=== PATIENT | male | born 1940 | race Caucasian/White ===

== ENCOUNTER → 2017-06-27 08:05 | Outpatient (CLI) | payer MEDICARE, OTHER, SELFPAY ==
[2017-06-27 10:12] LABS: Absolute Lymphocyte Count 1.41 X10^3/ul (0.83-4.51); Absolute Neutrophil Count 2.2 X10^3/uL (2.0-7.7); Basophil# 0.03 X10^3/uL; Basophil% 0.6 % (0-1); Eosinophil# 0.34 X10^3/uL; Eosinophils% 7.2 % (0-5); Hematocrit 43.1 % (40-54); Hemoglobin 13.7 g/dl (13.0-16.5); Lymphocyte # 1.41 X10^3/ul (4.0); Lymphocyte % 29.9 % (19-41); Mean Corp Hgb Conc 31.8 g/gl (32-36); Mean Corpuscular Hgb 30.4 pg (27.0-32.0); Mean Corpuscular Volume 95.6 fL (80-94); Mean Platelet Vol. 11.2 fl (6.2-12.0); Monocyte# 0.74 X10^3/uL; Monocyte% 15.7 % (0-10); Neutrophil # 2.19 X10^3/uL (2.7-7.7); Neutrophil % 46.4 % (47-70); Platelet Count 194 K/mm3 (150-450); RBC Distribution Width CV 14.2 % (11.6-14.6); RBC Distribution Width SD 49.2 fl (35.1-43.9); Red Blood Count 4.51 M/mm3 (4.6-6.2); White Blood Count 4.7 K/mm3 (4.4-11.0)
[2017-06-27 10:15] LABS: POSITIVE COUNT NO; POSITIVE DIFFERENTIAL NO; POSITIVE MORPHOLOGY NO
[2017-06-27 10:26] LABS: AST(SGOT) 30 U/L (15-37); Alanine Aminotransfer ALT/SGPT 31 U/L (16-61); Albumin, Serum 3.8 g/dL (3.2-5.0); Alkaline Phosphatase 87 U/L (45-117); Bilirubin, Direct 0.16 mg/dL (0.00-0.30); Cholesterol 148 mg/dL (200); Globulin 3.3 g/dL (2.2-4.2); High Density Lipoprotein 44 mg/dL; Protein, Total 7.1 g/dL (6.4-8.2); Triglycerides 92 mg/dL; Very Low Density Lipoprotein 18 mg/dL (5-40)
== END ==
PROVIDERS: Internal Medicine Cardiovascular Disease; Family Provider Nurse Practitioner Family; PCP Nurse Practitioner Family; Visit Provider Nurse Practitioner Family
DX: E78.5 Hyperlipidemia, unspecified (principal); I10 Essential (primary) hypertension; Z79.899 Other long term (current) drug therapy
CPT/HCPCS: 36415; 80061; 80076; 85025

== ENCOUNTER → 2017-07-24 05:51 | Outpatient (CLI) | payer MEDICARE, OTHER, SELFPAY ==
--- NOTE | 2017-07-24 05:51 | DT_ITS ---
This patient was seen during an EMR downtime July 17, 2017 - July 24, 2017. This patient may have a combination of paper and electronic documentation or all paper documentation. All documentation is viewable within the e-chart portion of [email or web address] for each patient visit.
--- NOTE | 2017-07-24 17:56 | STRESSREP ---
Stress Test Report Pharmacologic myocardial perfusion stress test. 77-year-old man with a history of coronary artery disease status post carotid bypass surgery. Resting EKG demonstrates normal sinus rhythm with a rate of 57 bpm resting blood pressure is 150/102 mmHg. 0.4 mg regadenoson was infused per usual protocol followed by rapid intravenous saline flush injection continuous EKG monitoring was performed. Patient maintained sinus rhythm throughout the recording. At rest there were no ST or T-wave changes noted suggest ischemia occasional premature ventricular complexes were noted. At peak infusion no ST or T-wave changes were noted suggest abnormal flow reserve. No clinical angina was noted. The resting blood pressure was 150/102 mmHg with a final blood pressure 158/92 mmHg. Myocardial perfusion protocol. 14.7 mCi of technetium 99m sestamibi was injected at rest. 0.4 mg of regadenoson was infused per usual protocol. Peak infusion 45.0 mCi of technetium 99m sestamibi was injected stress images were obtained stress and rest images were reconstructed and compared in the short axis vertical long and horizontal long axis. Gated images were also obtained pre- Perfusion SPECT analysis: Review of the stress images demonstrate normal uptake of tracer noted in the septum anterior wall and lateral wall. The inferior wall demonstrates mildly reduced perfusion. The resting images demonstrate mild improvement suggesting a mild amount of inferior ischemia present. Gated SPECT analysis: The gated ejection fraction is 60%. Conclusion: Pharmacologic myocardial perfusion stress test with probable mild inferior perfusion defect noted. Preserved ejection fraction.
== END ==
PROVIDERS: Family Provider Nurse Practitioner Family; PCP Nurse Practitioner Family; Visit Provider Physician Assistant Medical
DX: I25.10 Atherosclerotic heart disease of native coronary artery without angina pectoris (principal); I10 Essential (primary) hypertension; E78.5 Hyperlipidemia, unspecified
CPT/HCPCS: 78452; 93017; A9500; A4216; J2785

== ENCOUNTER → 2017-11-14 08:37 | Outpatient (CLI) | payer MEDICARE, OTHER, SELFPAY ==
--- NOTE | 2017-11-14 08:38 | RAD_ITS ---
STUDY: X-RAY - LEFT SHOULDER REASON FOR EXAM: Shoulder pain. TECHNIQUE: 3 view(s) of the shoulder. COMPARISON: None. FINDINGS: Normal glenohumeral articulation. Normal acromioclavicular joint. Normal acromion. Normal humeral head and visualized proximal humerus. The soft tissue structures are unremarkable. Normal visualized pulmonary apex. RAD/Shoulder min 2 Views IMPRESSION: Unremarkable x-ray examination of the left shoulder. Electronically Signed: Marin Forman MD at 12:49 EDT Tel , Service support ,
== END ==
PROVIDERS: Family Provider Nurse Practitioner Family; PCP Nurse Practitioner Family; Referring Provider Orthopaedic Surgery; Visit Provider Orthopaedic Surgery
DX: M25.512 Pain in left shoulder (principal)
CPT/HCPCS: 73030

== ENCOUNTER → 2017-12-27 16:13 | Outpatient (CLI) | payer MEDICARE, OTHER, SELFPAY ==
[2017-07-05 13:10] VITALS: BMI 34.5
--- NOTE | 2017-12-27 16:20 | RAD_ITS ---
STUDY: X-RAY - ABDOMEN/PELVIS REASON FOR EXAM: Male, 77 years old. Abdominal pain. TECHNIQUE: AP supine and upright views of the abdomen and pelvis. COMPARISON: 12/03/2014. FINDINGS: Normal visualized lung bases. There is an unremarkable bowel gas pattern. There is no demonstrated free abdominal air. No definite renal or ureteral stones. The visualized liver, spleen and kidneys are grossly normal in size and morphology. Normal soft tissue structures. There are diffuse degenerative changes of the visualized lumbar spine. RAD/Abd Inc Decub and/or Erect IMPRESSION: No definite acute abnormality. Electronically Signed: Sigifredo Mei MD at 12:04 EST , Service support ,
== END ==
PROVIDERS: Family Provider Nurse Practitioner Family; PCP Nurse Practitioner Family; Referring Provider Internal Medicine Gastroenterology; Visit Provider Internal Medicine Gastroenterology
DX: R10.9 Unspecified abdominal pain (principal)
CPT/HCPCS: 74019

== ENCOUNTER → 2018-04-05 09:34 | Outpatient (CLI) | payer MEDICARE, OTHER, SELFPAY ==
[2018-04-05 12:31] LABS: AST(SGOT) 35 U/L (15-37); Alanine Aminotransfer ALT/SGPT 29 U/L (16-61); Albumin, Serum 3.7 g/dL (3.2-5.0); Alkaline Phosphatase 78 U/L (45-117); Bilirubin, Direct 0.12 mg/dL (0.00-0.30); Cholesterol 152 mg/dL (200); Globulin 3.1 g/dL (2.2-4.2); High Density Lipoprotein 45 mg/dL; Protein, Total 6.8 g/dL (6.4-8.2); Triglycerides 133 mg/dL; Very Low Density Lipoprotein 27 mg/dL (5-40)
== END ==
PROVIDERS: Family Provider Nurse Practitioner Family; PCP Nurse Practitioner Family; Referring Provider Internal Medicine Cardiovascular Disease; Visit Provider Internal Medicine Cardiovascular Disease
DX: E78.5 Hyperlipidemia, unspecified (principal)
CPT/HCPCS: 36415; 80061; 80076

== ENCOUNTER → 2018-05-23 07:42 | Outpatient (CLI) | payer MEDICARE, OTHER, SELFPAY ==
--- NOTE | 2018-05-23 12:52 | PFT ---
INTRODUCTION: The patient is a 78-year-old male that presents for pulmonary function studies secondary to a diagnosis of cough. Respiratory therapy reports good patient effort. Bronchodilators were used during testing. INTERPRETATION: Forced expiration spirometry demonstrates no evidence of a large airways obstructive ventilatory defect. There was no significant response to aerosolized bronchodilators, based upon strict ATS criteria. Nevertheless, the patient did have a rather robust mid flow bronchodilator response. Spirograms are of good quality and do not plateau indicating slow emptying of the lungs. The respiratory flow volume loop appears normal. Body plethysmography was performed and reveals lung volumes to be within normal limits. Diffusing capacity by single breath CO is also within normal limits. IMPRESSION: Essentially normal pulmonary function studies, with subtle stigmata of possible small airways disease. Clinical correlation is recommended. There are no previous pulmonary function studies available for comparison.
== END ==
PROVIDERS: Family Provider Nurse Practitioner Family; PCP Nurse Practitioner Family; Referring Provider Otolaryngology Otolaryngology/Facial Plastic Surgery; Visit Provider Otolaryngology Otolaryngology/Facial Plastic Surgery
DX: R05 Cough (principal)
CPT/HCPCS: 94060; 94726; 94729

== ENCOUNTER → 2018-08-02 | Outpatient (CLI) | payer MEDICARE, OTHER, SELFPAY ==
[2017-07-05 13:10] VITALS: BMI 34.5
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
== END | disposition home or self-care (01) ==
LOC: RAD 11:26
PROVIDERS: Family Provider Nurse Practitioner Family; PCP Nurse Practitioner Family; Referring Provider Anesthesiology Pain Medicine; Visit Provider Anesthesiology Pain Medicine
DX: M54.2 Cervicalgia (principal)
CPT/HCPCS: 72050; 72072

== ENCOUNTER → 2019-01-28 07:09 | Outpatient (CLI) | payer MEDICARE, OTHER, SELFPAY ==
[2019-01-15 14:21] VITALS: BMI 34.5
--- NOTE | 2019-01-28 07:11 | MRI_ITS ---
STUDY: MRI RIGHT SHOULDER REASON FOR EXAM: Right shoulder pain for 3 years. TECHNIQUE: Standardized fat and water weighted pulse sequences were obtained in all 3 orthogonal planes. COMPARISON: MRI images 09/30/2016 and radiographs 12/01/2015. FINDINGS: There is a full-thickness tear of the supraspinatus and infraspinatus tendons retracted approximately 4.6 cm to the level of the glenoid (T2 coronal images 8-16), increased since the prior study. There is an undersurface partial-thickness tear of the subscapularis tendon (proton density axial images 14, 15). Normal teres minor tendon. There is atrophy with partial fat replacement of the supraspinatus muscle (T2 axial image 9). There is atrophy with partial fat replacement of the infraspinatus muscle (T2 axial image 14). Normal subscapularis muscle. Normal teres minor muscle. There is mild glenohumeral arthrosis with mild chondral thinning (T2 coronal image 12). There is a small glenohumeral joint effusion. There is superior migration of the humeral head secondary to the retracted rotator cuff tear. There is a tear with nonvisualization of the intracapsular long biceps tendon. There is degeneration of the labrum. Normal capsulo- ligamentous complex. There is acromioclavicular arthrosis without substantial undersurface osteophytes (T2 sagittal image 16). There is a Type II morphology (curved), with a neutral orientation. There is a small volume of subacromial-subdeltoid bursal fluid. There is thickening of the coracoacromial ligament (T2 sagittal image 11). Normal deltoid muscle. Normal trapezius muscle. MRI/Upper Ext Joint Only(Routine) IMPRESSION: Full-thickness tear of the supraspinatus and infraspinatus tendons. Undersurface partial-thickness tear of the subscapularis tendon. Atrophy of the supraspinatus and infraspinatus muscles. Mild glenohumeral arthrosis with degeneration of the labrum. Tear of the long biceps tendon. Acromioclavicular arthrosis. Thickening of the coracoacromial ligament. Glenohumeral joint fluid communicating with the subacromial-subdeltoid bursa. Electronically Signed: Marin Forman MD at 9:03 EST Tel , Service support ,
== END ==
PROVIDERS: Family Provider Nurse Practitioner Family; PCP Nurse Practitioner Family; Referring Provider Orthopaedic Surgery; Visit Provider Orthopaedic Surgery
DX: M25.311 Other instability, right shoulder (principal)
CPT/HCPCS: 73221

== ENCOUNTER → 2019-01-30 08:38 | Outpatient (CLI) | payer MEDICARE, OTHER, SELFPAY ==
[2019-01-15 14:21] VITALS: BMI 34.5
[2019-01-30 10:13] LABS: Absolute Lymphocyte Count 1.43 X10^3/uL (0.83-4.51); Absolute Neutrophil Count 4.3 X10^3/uL (2.0-7.7); Basophil# 0.02 X10^3/uL; Basophil% 0.3 % (0-1); Eosinophil# 0.12 X10^3/uL; Eosinophils% 1.8 % (0-5); Hematocrit 41.7 % (40-54); Hemoglobin 13.5 g/dL (13.0-16.5); Lymphocyte # 1.43 X10^3/ul (4.0); Lymphocyte % 21.4 % (19-41); Mean Corp Hgb Conc 32.4 g/dL (32-36); Mean Corpuscular Volume 98.8 fL (80-94); Mean Platelet Vol. 11.6 fl (6.2-12.0); Monocyte# 0.72 X10^3/uL; Monocyte% 10.8 % (0-10); NRBC Flagged by Analyzer 0 % (0-5); Neutrophil # 4.33 X10^3/uL (2.7-7.7); Neutrophil % 64.8 % (47-70); Platelet Count 176 K/mm3 (150-450); RBC Distribution Width CV 14.1 % (11.6-14.6); Red Blood Count 4.22 M/mm3 (4.6-6.2); White Blood Count 6.7 K/mm3 (4.4-11.0)
[2019-01-30 11:00] LABS: ALB/GLOB Ratio 1.2 RATIO (0.9-2.4); AST(SGOT) 25 U/L (15-37); Alanine Aminotransfer ALT/SGPT 35 U/L (16-61); Albumin, Serum 3.5 g/dL (3.2-5.0); Alkaline Phosphatase 80 U/L (45-117); Anion Gap 4 (5-15); BUN 19 mg/dL (7-18); BUN/Creat Ratio 16.7 RATIO (10-20); Bilirubin, Direct 0.15 mg/dL (0.00-0.30); Calcium,Total 8.2 mg/dL (8.5-10.1); Chloride 107 mmol/L (98-107); Cholesterol 171 mg/dL (200); Creatinine, Serum 1.14 mg/dL (0.70-1.30); EST Glomerular Filtration Rate 66 mL/min (>60); Est Glom Filt Rate - Afr Amer 80 mL/min (>60); Globulin 2.8 g/dL (2.2-4.2); Glucose 99 mg/dL (74-106); High Density Lipoprotein 59 mg/dL; Potassium 4.7 mmol/L (3.5-5.1); Protein, Total 6.3 g/dL (6.4-8.2); Sodium Level 140 mmol/L (136-145); T4 Free Direct 1.31 ng/dL (0.76-1.46); Triglycerides 115 mg/dL; Very Low Density Lipoprotein 23 mg/dL (5-40)
== END ==
PROVIDERS: Internal Medicine Cardiovascular Disease; Family Provider Nurse Practitioner Family; PCP Nurse Practitioner Family; Referring Provider Nurse Practitioner Family; Visit Provider Nurse Practitioner Family
DX: E03.9 Hypothyroidism, unspecified (principal); I25.10 Atherosclerotic heart disease of native coronary artery without angina pectoris; I73.9 Peripheral vascular disease, unspecified; I10 Essential (primary) hypertension; E78.5 Hyperlipidemia, unspecified; Z95.1 Presence of aortocoronary bypass graft
CPT/HCPCS: 36415; 80053; 80061; 82248; 84439; 84443; 85025

== ENCOUNTER → 2019-02-19 10:19 | Outpatient (CLI) | payer MEDICARE, OTHER, SELFPAY ==
[2019-01-15 14:21] VITALS: BMI 34.5
--- NOTE | 2019-02-19 10:24 | RAD_ITS ---
STUDY: X-RAY CHEST REASON FOR EXAM: Male, 79 years old. Cough, sob, fever TECHNIQUE: PA and lateral views of the chest. COMPARISON: Comparison is made with prior study dated July 21, 2009. FINDINGS: The lungs are clear and expanded. There is no demonstrated pleural abnormality. Sternal cerclage wires and vascular clips are present from a prior sternotomy and coronary artery bypass graft procedure (CABG). Normal mediastinum and hansel. Normal visualized pulmonary arteries. There is atherosclerotic calcification of the aortic arch with tortuosity. There are diffuse degenerative changes of the visualized thoracic spine. Normal visualized ribs, clavicles, and shoulders. There is no demonstrated abnormality of the visualized soft tissue structures of the upper abdomen. RAD/Chest PA and Lateral IMPRESSION: No acute abnormality is seen. Electronically Signed: Ryan Lu, at 14:39 EST , Service support ,
[2019-02-19 12:25] LABS: Absolute Lymphocyte Count 1.75 X10^3/uL (0.83-4.51); Absolute Neutrophil Count 2.4 X10^3/uL (2.0-7.7); Basophil# 0.03 X10^3/uL; Basophil% 0.6 % (0-1); Eosinophil# 0.21 X10^3/uL; Eosinophils% 4.3 % (0-5); Hematocrit 41.4 % (40-54); Hemoglobin 13.4 g/dL (13.0-16.5); Lymphocyte # 1.75 X10^3/ul (4.0); Lymphocyte % 36.2 % (19-41); Mean Corp Hgb Conc 32.4 g/dL (32-36); Mean Corpuscular Hgb 30.7 pg (27.0-32.0); Mean Platelet Vol. 10.8 fl (6.2-12.0); Monocyte# 0.47 X10^3/uL; Monocyte% 9.7 % (0-10); NRBC Flagged by Analyzer 0 % (0-5); Neutrophil # 2.37 X10^3/uL (2.7-7.7); Platelet Count 170 K/mm3 (150-450); RBC Distribution Width CV 13.6 % (11.6-14.6); RBC Distribution Width SD 47.7 fl (35.1-43.9); Red Blood Count 4.36 M/mm3 (4.6-6.2); White Blood Count 4.8 K/mm3 (4.4-11.0)
[2019-02-19 12:40] LABS: AST(SGOT) 33 U/L (15-37); Alanine Aminotransfer ALT/SGPT 32 U/L (16-61); Albumin, Serum 3.4 g/dL (3.2-5.0); Alkaline Phosphatase 76 U/L (45-117); Anion Gap 6 (5-15); BUN 17 mg/dL (7-18); Calcium,Total 8.7 mg/dL (8.5-10.1); Chloride 103 mmol/L (98-107); Creatinine, Serum 1.31 mg/dL (0.70-1.30); EST Glomerular Filtration Rate 56 mL/min (>60); Est Glom Filt Rate - Afr Amer 68 mL/min (>60); Globulin 3.4 g/dL (2.2-4.2); Glucose 99 mg/dL (74-106); Potassium 3.7 mmol/L (3.5-5.1); Protein, Total 6.8 g/dL (6.4-8.2); Sodium Level 137 mmol/L (136-145)
== END ==
PROVIDERS: Family Provider Nurse Practitioner Family; PCP Nurse Practitioner Family; Referring Provider Nurse Practitioner Family; Visit Provider Nurse Practitioner Family
DX: R50.9 Fever, unspecified (principal); R06.02 Shortness of breath; R05 Cough
CPT/HCPCS: 36415; 71046; 80053; 85025

== ENCOUNTER 2019-03-20 05:38 | Day surgery (SDC) | payer MEDICARE, OTHER, SELFPAY ==
[2019-03-15 09:41] VITALS: BMI 34.5
--- NOTE | 2019-03-15 10:12 | HP_ITS ---
I have re-examined the patient. There are no clinical changes since date of exam. Intake Vital Signs 03/15/19 BMI 34.5 Intake Visit Reasons: right shoulder Chief Complaint: Follow-up visit Accompanied by: Is patient in pain?: Yes Pain scale (1-10): 3 Allergies simvastatin Allergy (Mild, Verified 04/12/18 11:21) unknown Medications aspirin 81 mg chewable tablet PO 04/13/17 [History Confirmed 03/15/19] levothyroxine 150 mcg capsule PO 04/13/17 [History Confirmed 03/15/19] mesalamine 0.375 gram capsule,extended release 24 hr 1.5 g PO QAM 04/13/17 [History Confirmed 03/15/19] nitroglycerin 400 mcg/spray translingual 0.4 mg TRANSLINGUAL Q5M PRN 04/13/17 [History Confirmed 03/15/19] omeprazole 20 mg capsule,delayed release 20 mg PO ONCE 04/13/17 [History Confirmed 03/15/19] buspirone 10 mg tablet 10 mg PO BID 04/12/18 [History Confirmed 03/15/19] atorvastatin 40 mg tablet 40 mg PO QDAY #90 tab 08/27/18 [Rx Confirmed 03/15/19] losartan 25 mg tablet 25 mg PO DAILY #90 tab 08/27/18 [Rx Confirmed 03/15/19] metoprolol tartrate 100 mg tablet 100 mg PO BID #180 tab 01/14/19 [Rx Confirmed 03/15/19] albuterol sulfate 90 mcg/actuation aerosol inhaler INHALATION 03/15/19 [History Confirmed 03/15/19] PFSH Social History (Updated 03/15/19 @ 10:[address] Karina Gonzales DO) Smoking Status: Former smoker alcohol intake: current alcohol intake frequency: a few times a week Alcohol type: beer, wine substance use type: does not use HPI right shoulder: Surgical H&P: Yes Details: Parts of this documentation were recorded by a scribe, this documentation accurately reflects the service provided and the decisions made by me, Dr. Karina Gonzales DO 03/15/19 0919. MCKENNA SILVA is a 79 year old M here today for F/U on right shoulder after having MRI completed. Patient states he is still having right anterior shoulder pain. patient had BL subacromial injection in 01/2019 which he states helped his left shoulder but he continues to have right shoulder pain and is sick and tired of it. has had previous injections, PT, etc and still having pain. He has good ROM of his right shoulder. Denies numbness, tingling or other associated symptoms. ROS Musc Reports joint pain, Denies joint swelling, Denies limited joint movement, Denies numbness, Denies stiffness, Denies tingling Skin/Breast Denies system reviewed and no additional complaints, except as docu, Denies as per HPI, Denies acne, Denies hair loss, Denies bleeding lesions, Denies change in hair, Denies nail changes, Denies change in skin color, Denies changing lesions, Denies dry skin, Denies redness, Denies boil, Denies excessive hair growth, Denies yellowing of the skin, Denies lesions, Denies new lesions, Denies non-healing lesions, Denies sensitivity to light, Denies itching, Denies rash, Denies skin pain, Denies skin ulcer, Denies sores, Denies stretch berry, Denies skin swelling, Denies unusual bruising, Denies wounds, Denies change in breast shape, Denies breast lump, Denies breast pain, Denies breast skin changes, Denies breast swelling, Denies nipple discharge, Denies other Neuro No numbness, No tingling Ortho Exam Right Shoulder Testing: Positive Hawkin's, Speed's, TTP Biceps and TTP AC Joint; negative AROM-Forward Elevation 0-180 (140) No rales rhonchi wheezing, no abdominal pain, no audible bruits Assessment & Plan Problems 1. Bursitis of right shoulder M75.51 2. Internal impingement of right shoulder M75.41 Plan Explained that his RTC is retracted too much to repair but he could benefit from an arthroscopy for debridement and has ttp at his ac joint and oa on xr. Reviewed the pre-operative plans with the patient. Risks and benefits of the procedure were fully explained, including but not limited to infection, neurovascular injury, continued pain, arthritis, stiffness, need for further surgery, re-injury, DVT, PE, general risks of anesthesia, and loss of limb or life. The patient understands all the risks and does wish to proceed with written consent. Follow up post op or sooner if pain, swelling, numbness or associated symptoms, or concerns develop. All questions answered. Patient in agreement of plan. Coding Level of Care Code Off vis,est,level 4 Diagnoses Bursitis of right shoulder M75.51 Internal impingement of right shoulder M75.41 03/15/19 1013 <Electronically signed by Karina griggs DO> Date _ Karina Gonzales DO
--- NOTE | 2019-03-19 10:29 | EKG12_ITS ---
Test Reason : PREOP Blood Pressure : / mmHG Vent. Rate : 073 BPM Atrial Rate : 073 BPM P-R Int : 142 ms QRS Dur : 080 ms QT Int : 374 ms P-R-T Axes : 062 040 051 degrees QTc Int : 412 ms Normal sinus rhythm Possible Left atrial enlargement Borderline ECG Confirmed by MALICK JOE, RODRÍGUEZ ([id number]), movie editor DAVID MEIER ([id number]) on 03/20/2019 9:03:45 AM Referred By: Karina Gonzales Confirmed By:RODRÍGUEZ TERESA MD
[2019-03-20] MEDS: Lactated Ringers 1,000 ML 100 ML IV (06:40)
[2019-03-20 06:41] VITALS: BP 180/89; PULSE 65; RESP 16; TEMP 36.8; O2SAT 95; BMI 33.6
--- NOTE | 2019-03-20 07:20 | DCINST_ITS ---
Discharge Diet: No Restrictions - Remove dressings postop day 4 and apply Band- Aids to incision sites, may shower and get incision may get incision wet postop day 4, remove dressings and apply bandaids to incision sites, weight bear as tolerated right arm, call with increased pain numbness tingling or further issues arise, take pain medications as prescribed do not take any other Tylenol products, follow-up in 2 weeks Discharge Activity: May Not Drive May shower in (days): 1 Ice area for (Minutes): 20 - Every hour while awake. Weight Bearing Status: Weight bearing as tolerated Keep extremity elevated above heart level: Operative Extremity Call your doctor if your incision/area has: Continuous Slow Oozing, Sudden Increased Bleeding, Increased Pain/ Swelling, Increased Redness, Foul Smelling Discharge Call your doctor if you observe: Fever of 101 or Higher, Coldness, Increased Pain, Numbness or Tingling, Change in Color, Calf discomfort Allergies/Adverse Reactions: Allergies simvastatin Allergy (Mild, Verified 03/19/19 08:13) unknown Medications to take at Discharge aspirin 81 mg chewable tablet 81 mg PO DAILY 04/13/17 levothyroxine 150 mcg capsule 150 mcg PO DAILY 04/13/17 nitroglycerin 400 mcg/spray translingual 0.4 mg TRANSLINGUAL Q5M PRN 04/13/17 omeprazole 20 mg capsule,delayed release 20 mg PO DAILY 04/13/17 losartan 25 mg tablet 25 mg PO DAILY #90 tab 08/27/18 metoprolol tartrate 100 mg tablet 100 mg PO BID #180 tab 01/14/19 albuterol sulfate 90 mcg/actuation aerosol inhaler 1 puff INHALATION PRN PRN 03/15/19 Atorvastatin Calcium 40 mg PO QHS 03/19/19 Mesalamine [Apriso] 2 tab PO DAILY 03/19/19 Oxycodone HCl/Acetaminophen [Percocet 5/325] 1 - 2 tab PO Q6H PRN PRN 5 Days #28 tab 03/20/19 Zolpidem Tartrate [Ambien (Generic)] 5 mg PO QHS PRN PRN #14 tab 03/20/19 The following prescriptions were given: Zolpidem Tartrate [Ambien (Generic)] 5 mg PO QHS PRN PRN #14 tab PRN Reason: Insomnia Transmission Status: Received by [facility]/pharmacy #[id number] Oxycodone HCl/Acetaminophen [Percocet 5/325] 1 - 2 tab PO Q6H PRN PRN 5 Days #28 tab PRN Reason: Pain Transmission Status: Received by [facility] #[id number] Orders to be completed after discharge: 12 Lead EKG [[facility]] Time Frame: 03/19/19, Facility: [facility], Location: Cardiovascular Services Primary Care Physician: Jeremi Reinoso, DIRECTOR [employer] [Primary Care Provider] - Test Results: Test results from this visit will be discussed in further detail at your follow- up appointment, if applicable. Please Follow Up With: Karina Gonzales, DO - [phone]
--- NOTE | 2019-03-20 07:21 | PCM.OPRPT ---
Report of Operation Date of Procedure: 03/20/19 Pre-Operative Diagnosis: right shoulder rotator cuff tear, subacromial impingment syndrome, acromioclavicular arthritis Post-Operative Diagnosis: same Surgery/Procedure Performed:: right shoulder arthroscopy, extensive debridement, subacromial decompression/acromioplasty, loose body removal, distal clavicle excision participant administrator: Scott Douglas Type of Anesthesia:: General/Regional Anesthesiologist: Cortez Hernandez Specimen's removed: [id number] bone anterolateral acromion chip fx Estimated Blood Loss (mL): min Fluids Replaced: 1000ml lr Description of Procedure: Preop note Patient is a 79-year-old male well-known to me in clinic has had multiple injections into his right shoulder had increasing pain posteriorly and laterally failed conservative treatment patient elected to proceed with a right shoulder arthroscopy we did discuss his MRI findings and that he has atrophy of his rotator cuff he is not a good candidate for rotator cuff repair. He has full range of motion of the elbow to decrease strength and is compensated well. Because of this we will proceed with right shoulder arthroscopy repair as indicated but we will not be doing his rotator cuff. Risk benefits alternatives surgery discussed with patient. Risk including but not limited to blood loss, blood clot, infection, neurovascular, failure procedure, loss of life and loss of limb. Patient is aware would like proceed with right shoulder arthroscopy repair as indicated. Operative note Patient seen and examined preop holding area. Right shoulder was marked. Patient brought to the operating room placed supine on the operating table. Signed, anesthesia, antibiotics were administered. Right arm was prepped and draped usual sterile fashion with bony promises well-padded SCDs placed on his lower extremities. Senior Care through beachchair positioning we did recheck his blood pressure which was stable throughout. The right arm was then prepped and draped in usual sterile technique. We marked out a bony landmarks for portal placement we then insufflated the glenohumeral joint from the posterior aspect. Timeout was performed. We then created our lateral portal was a posterior portal with an 11 blade. Begin our diagnostic arthroscopy visualized the glenohumeral joint was intact. The rotator cuff was a massive cuff repair off the entire footprint it was retracted to the level of the acromion. We then created anterior portal as there was some fibrillated changes underneath the rotator cuff as well as around the labrum. We then created an anterior portal and then inserted a shaver and debrided back the labrum as well as the undersurface of the rotator cuff. There is subscap was intact. We then moved to the subacromial space. Created a lateral portal under direct visualization. We then debrided started to bring back to the second bursa there was a very large posterior valve veil piece. We use a combination of a shaver and ablator wand. We continued anteriorly we had a sharp piece of his acromion which upon bearing it there was actually a chip fracture of his acromion was about which was removed a combination of an ablator wand and a Vianey out the lateral portal which is a and large cyst at that to remove the 1 x 1 cm x 5 cm piece. We then used a bur to co-plane the undersurface of the anterior lateral chromium. We then moved to a trans-acromioclavicular portal. We created a use our 18-gauge spinal needle we will then visualize the AC joint we then resected back any bursa that was around this with a combination of a Stater shaver and ablator wand. We then used a 11 blade to create and create our trans-acromioclavicular portal. We used a shaver initially to debride back with a acromial process on the acromial side as well as the distal clavicle. We then excised with a bur about 8-1 8 mm to 1 cm of the distal clavicle. We go to had made a good flat surface coagulated any bleeders that we did encounter. We then irrigated subacromial space with copious amounts of sterile saline. We then further also co-plane the acromion all bit further into anterior and laterally again and then irrigated again with copious as a sterile saline ablated any bleeders. The portals were closed with interrupted 4-0 nylon stitches sterile dressings were applied and placed and patient was placed in a sling. Patient taught procedure well no complication transfer recovery room in stable condition Postoperative note Use arm as tolerated Follow-up in 2 weeks for suture removal and initiation of physical therapy Pharmacy has prescriptions Call with increased pain numbness tingling further issues arise Dragon disclaimer this note was generated with [employer] dictation software. It may contain incorrect words, spelling, and punctuation that were not noted in checking the note before signing.
[2019-03-20] MEDS: Cefazolin 2 GM in 0.9% Normal Saline 100 ML IV (07:30)
[2019-03-20] MEDS: Epinephrine (1 mg/ml) 1 MG/ML VIAL (08:04)
[2019-03-20] MEDS: Mupirocin Ointment 22gm Tube 1 APPLIC (09:10)
[2019-03-20 09:25] VITALS: BP 141/78; BP 180/89; PULSE 66; RESP 16; TEMP 36.2; O2SAT 93
[2019-03-20 09:30] VITALS: BP 153/82; BP 180/89; PULSE 61; RESP 16; O2SAT 93
[2019-03-20 09:45] VITALS: BP 153/70; BP 180/89; PULSE 58; RESP 16; O2SAT 93
[2019-03-20 09:59] VITALS: BP 154/90; BP 180/89; PULSE 59; RESP 16; TEMP 36.1
[2019-03-20 11:05] VITALS: BP 155/78; BP 180/89; PULSE 61; RESP 18; TEMP 36; O2SAT 92
== END 2019-03-20 11:08 | disposition home or self-care (01) ==
LOC: SDC 05:38 → AC 05:39
PROVIDERS: PCP Nurse Practitioner Family; Referring Provider Orthopaedic Surgery; Visit Provider Orthopaedic Surgery
PROC: (CPT 29827; principal; 2019-03-20 07:10)
DX: M75.101 Unspecified rotator cuff tear or rupture of right shoulder, not specified as traumatic (principal); M25.811 Other specified joint disorders, right shoulder; M75.41 Impingement syndrome of right shoulder; M19.011 Primary osteoarthritis, right shoulder; M75.51 Bursitis of right shoulder; I25.2 Old myocardial infarction; I10 Essential (primary) hypertension; E78.00 Pure hypercholesterolemia, unspecified; E06.9 Thyroiditis, unspecified; K21.9 Gastro-esophageal reflux disease without esophagitis; Z79.82 Long term (current) use of aspirin; Z87.891 Personal history of nicotine dependence; Z95.1 Presence of aortocoronary bypass graft
CPT/HCPCS: 01630; 29823; 29824; 29826; 64415; 76942; 93005; J7120

== ENCOUNTER → 2019-07-11 14:12 | Outpatient (CLI) | payer MEDICARE, OTHER, SELFPAY ==
[2019-04-16 09:43] VITALS: BMI 35.5
[2019-07-11 12:50] VITALS: BMI 35.5
--- NOTE | 2019-07-11 14:13 | VDUE_ITS ---
Reason For Study: Swelling Right Proximal Right jugular vein is spontaneous, widely patent, phasic, with no intraluminal echogenicity noted. Right subclavian vein is spontaneous, widely patent, phasic, with no intraluminal echogenicity noted. Right Lower Arm Right radial vein is compressible. Right ulnar vein is compressible. Right Arm Right axillary vein is spontaneous, patent, phasic, competent, compressible and demonstrates augmentation. Right brachial vein is compressible. Right cephalic vein is compressible. Right basilic vein is compressible. Patient Safety Prelim to Janet. Interpretation Summary No evidence for acute deep venous thrombosis[right] upper extremity with patent and compressible cephalic and basilic veins. Ordering Physician: Karina Gonzales Referring Physician: Jeremi Reinoso Performed By: Hilda Fang RVT ?
--- NOTE | 2019-07-11 14:17 | ECHOD_ITS ---
Reason For Study: CHF Procedure This was a 2D Doppler, Color Flow transthoracic echocardiogram. Exam performed portable in patient room. Left Ventricle Normal LV size. Left ventricular systolic function is normal. The estimated ejection fraction is 60 %. No evidence for diastolic dysfunction. No regional wall motion abnormalities noted. Right Ventricle Normal RV size. Normal systolic function. Atria Normal left atrium. Normal right atrium. Mitral Valve Normal mitral valve. Tricuspid Valve Normal tricuspid valve. Mild (1+) tricuspid valve insufficiency. Pulmonary artery systolic pressure is 36 mmHg. Aortic Valve Trisinus/trileaflet aortic valve. Mild focal aortic valve calcification. Pulmonic Valve Normal pulmonic valve. Great Vessels Normal aortic root. The pulmonary artery is normal size. Inferior vena cava collapse with respiration. Pericardium/Pleural No pericardial effusion. MMode/2D Measurements & Calculations LVIDd: 5.0 cm IVSd: 1.2 cm Ao root diam: 3.4 cm LVIDs: 3.5 cm LVPWd: 1.1 cm RVDd: 3.8 cm FS: 30.1 % LAV(MOD-sp2): 46.6 ml LVAd ap4: 20.4 cm2 LA A4 area: 20.1 cm2 EDV(MOD-sp4): 60.3 ml EDV(sp4-el): 64.0 ml LA dimension(2D): 4.5 cm RA A4 area: 13.0 cm2 Time Measurements MV dec time: 0.17 sec Doppler Measurements & Calculations MV E max keith: 80.5 cm/sec Lat Peak E' Keith: 12.2 cm/sec Med Peak E' Keith: 9.6 cm/sec MV A max keith: 57.8 cm/sec E/E' lat: 6.6 E/E' med: 8.4 MV E/A: 1.4 Ao V2 max: 103.0 cm/sec LV V1 max: 94.5 cm/sec TR max keith: 282.5 cm/sec Ao max P.2 mmHg LV V1 max P.6 mmHg TR max P.0 mmHg Interpretation Summary Normal LV size. Left ventricular systolic function is normal. The estimated ejection fraction is 60 %. No evidence for diastolic dysfunction. Ordering Physician: Jeremi Reinoso Referring Physician: Jeremi Reinoso Performed By: Kath Plata, [place], RVT
[2019-07-11 17:28] LABS: Pathologist Comment May follow
[2019-07-11 19:45] LABS: Synovial Fld Polynuclear WBC # 0.042 10^3/uL
[2019-07-11 21:34] LABS: RBC /Synovial Fluid 0.008 10^6/uL (0)
[2019-07-11 21:43] LABS: AUTO B FLUID DILUENT BKGD CT WBC <0.1 RBC <0.01 (W<.1,R<.01); Appearance /Synovial Fluid Sl Cl (CLEAR); Color / Synovial Fluid Yellow (Pale Yellow); Lymph 19 %; Monocyte /Synovial Fluid 23 %; Neutrophil 15 % (0-25); Other Cell /Synovial Fluid 43 %; Source- Body Fluid SYNOVIAL
[2019-07-11 21:44] LABS: Body Fluid QC Type(s) BF1Q
[2019-07-12 09:14] LABS: Pathologist Review Reviewed
[2019-07-15 00:22] LABS: GLUCOSE, SYNOVIAL FLUID 108 mg/dL (.); PROTEIN, SYNOVIAL FLUID 3.9 g/dL (.)
== END ==
PROVIDERS: Orthopaedic Surgery; PCP Nurse Practitioner Family; Referring Provider Nurse Practitioner Family; Visit Provider Nurse Practitioner Family
DX: R00.2 Palpitations (principal); I25.10 Atherosclerotic heart disease of native coronary artery without angina pectoris; I50.9 Heart failure, unspecified; M79.89 Other specified soft tissue disorders; M25.411 Effusion, right shoulder; Z86.73 Personal history of transient ischemic attack (TIA), and cerebral infarction without residual deficits
CPT/HCPCS: 82945; 84157; 87070; 87075; 87205; 89050; 89051; 89060; 93306; 93971

== ENCOUNTER → 2019-07-12 14:23 | Outpatient (CLI) | payer MEDICARE, OTHER, SELFPAY ==
[2019-04-16 09:43] VITALS: BMI 35.5
[2019-07-12 10:37] VITALS: BMI 35.0
[2019-07-12 15:46] LABS: ALB/GLOB Ratio 1.2 RATIO (0.9-2.4); AST(SGOT) 30 U/L (15-37); Alanine Aminotransfer ALT/SGPT 24 U/L (16-61); Albumin, Serum 3.7 g/dL (3.2-5.0); Alkaline Phosphatase 100 U/L (45-117); Anion Gap 7 (5-15); BUN 16 mg/dL (7-18); BUN/Creat Ratio 11.9 RATIO (10-20); Calcium,Total 8.6 mg/dL (8.5-10.1); Chloride 106 mmol/L (98-107); Creatinine, Serum 1.35 mg/dL (0.70-1.30); EST Glomerular Filtration Rate 54 mL/min (>60); Est Glom Filt Rate - Afr Amer 66 mL/min (>60); Glucose 132 mg/dL (74-106); Magnesium 1.3 mg/dL (1.6-2.6); Potassium 3.9 mmol/L (3.5-5.1); Protein, Total 6.7 g/dL (6.4-8.2); Sodium Level 139 mmol/L (136-145)
== END ==
PROVIDERS: PCP Nurse Practitioner Family; Referring Provider Internal Medicine Cardiovascular Disease; Visit Provider Internal Medicine Cardiovascular Disease
DX: N18.9 Chronic kidney disease, unspecified (principal); I50.9 Heart failure, unspecified; R60.0 Localized edema; Z95.1 Presence of aortocoronary bypass graft
CPT/HCPCS: 36415; 80053; 83735

== ENCOUNTER → 2019-07-22 07:40 | Outpatient (CLI) | payer MEDICARE, OTHER, SELFPAY ==
[2019-07-12 10:37] VITALS: BMI 35.0
[2019-07-22 12:27] LABS: Cholesterol 161 mg/dL (200); High Density Lipoprotein 55 mg/dL; Triglycerides 90 mg/dL; Very Low Density Lipoprotein 18 mg/dL (5-40)
== END ==
PROVIDERS: PCP Nurse Practitioner Family; Referring Provider Physician Assistant Medical; Visit Provider Physician Assistant Medical
DX: E78.00 Pure hypercholesterolemia, unspecified (principal); R60.9 Edema, unspecified; G62.9 Polyneuropathy, unspecified; I25.10 Atherosclerotic heart disease of native coronary artery without angina pectoris; E78.5 Hyperlipidemia, unspecified; I10 Essential (primary) hypertension; Z95.1 Presence of aortocoronary bypass graft
CPT/HCPCS: 36415; 80061

== ENCOUNTER → 2019-07-23 17:40 | Outpatient (CLI) | payer MEDICARE, OTHER, SELFPAY ==
[2019-07-23 15:13] VITALS: BMI 35.5
[2019-07-23 17:42] LABS: Pathologist Comment May follow
[2019-07-23 18:08] LABS: Synovial Fld Mononuclear WBC % 85.6 %; Synovial Fld Polynuclear WBC # 0.025 10^3/uL; Synovial Fld Polynuclear WBC % 14.4 %
[2019-07-23 18:33] LABS: AUTO B FLUID DILUENT BKGD CT WBC <0.1 RBC <0.01 (W<.1,R<.01); Color / Synovial Fluid Yellow (Pale Yellow); Source / Synovial Fluid RIGHT SHOULDER; Source- Body Fluid SYNOVIAL
[2019-07-23 18:34] LABS: Appearance /Synovial Fluid Sl Cl (CLEAR); RBC /Synovial Fluid 423 /mm3 (0); Synovial Fld Mononuclear WBC # 0.148 10^3/ul
[2019-07-23 20:09] LABS: Lymph 18 %; Monocyte /Synovial Fluid 22 %; Other Cell /Synovial Fluid 60 %
[2019-07-24 11:32] LABS: Pathologist Review Reviewed
[2019-07-25 15:32] LABS: GLUCOSE, SYNOVIAL FLUID 75 mg/dL (.); PROTEIN, SYNOVIAL FLUID 4.6 g/dL (.)
== END ==
PROVIDERS: PCP Nurse Practitioner Family; Visit Provider Orthopaedic Surgery
DX: M75.51 Bursitis of right shoulder (principal); G62.9 Polyneuropathy, unspecified
CPT/HCPCS: 82945; 84157; 87070; 87075; 87205; 89050; 89051; 89060

== ENCOUNTER → 2019-10-22 09:35 | Outpatient (CLI) | payer MEDICARE, OTHER, SELFPAY ==
[2019-10-22 09:04] VITALS: BMI 35.5
[2019-10-22 09:43] LABS: Lyme Ab Screen Interpretation REF LAB
[2019-10-22 12:30] LABS: Absolute Lymphocyte Count 1.38 X10^3/uL (0.83-4.51); Absolute Neutrophil Count 2.1 X10^3/uL (2.0-7.7); Basophil# 0.03 X10^3/uL; Basophil% 0.7 % (0-1); Eosinophil# 0.25 X10^3/uL; Eosinophils% 5.7 % (0-5); Hematocrit 37.5 % (40-54); Lymphocyte # 1.38 X10^3/ul (4.0); Lymphocyte % 31.4 % (19-41); Mean Corpuscular Hgb 30.6 pg (27.0-32.0); Mean Corpuscular Volume 95.7 fL (80-94); Mean Platelet Vol. 11.5 fl (6.2-12.0); Monocyte% 13.7 % (0-10); NRBC Flagged by Analyzer 0 % (0-5); Neutrophil # 2.12 X10^3/uL (2.7-7.7); Neutrophil % 48.3 % (47-70); Platelet Count 160 K/mm3 (150-450); RBC Distribution Width CV 15.7 % (11.6-14.6); Red Blood Count 3.92 M/mm3 (4.6-6.2); White Blood Count 4.4 K/mm3 (4.4-11.0)
[2019-10-22 12:35] LABS: Erythrocyte Sedimentation Rate 10 mm/hr (0-20)
[2019-10-22 12:50] LABS: CRP < 2.90 mg/L (0.0-3.0); Rheumatoid Factor < 10.0 IU/mL (<15)
[2019-10-22 14:04] LABS: AUTO B FLUID DILUENT BKGD CT WBC <0.1 RBC <0.01 (W<.1,R<.01); Source- Body Fluid SYNOVIAL
[2019-10-22 14:05] LABS: Appearance /Synovial Fluid Clear (CLEAR); Color / Synovial Fluid Yellow (Pale Yellow); RBC /Synovial Fluid 355 /mm3 (0); Viscosity / Synovial Fluid Sl. Viscous (HIGH)
[2019-10-22 14:16] LABS: Source / Synovial Fluid NOT INDICATED
[2019-10-22 14:33] LABS: Synovial Fld Mononuclear WBC % 85.5 %; Synovial Fld Polynuclear WBC # 0.028 10^3/uL; Synovial Fld Polynuclear WBC % 14.5 %
[2019-10-22 14:34] LABS: Monocyte /Synovial Fluid 36 %; Neutrophil 6 % (0-25); Other Cell /Synovial Fluid 3 %; Synovial Fld Mononuclear WBC # 0.166 10^3/ul
[2019-10-22 14:35] LABS: Body Fluid QC Type(s) BF1Q,BF2Q; Lymph 55 %
[2019-10-23 16:08] LABS: ANTINUCLEAR ANTIBODIES DIRECT Positive (Negative)
[2019-10-23 16:11] LABS: GLUCOSE, SYNOVIAL FLUID 115 mg/dL (.)
[2019-10-23 16:23] LABS: PROTEIN, SYNOVIAL FLUID 3.7 g/dL (.)
[2019-10-24 09:07] LABS: Pathologist Comment Reviewed; Pathologist Review Reviewed
[2019-10-29 20:32] LABS: HLA B27 Negative (.)
[2019-10-29 20:33] LABS: CCP IgG Antibodies 5 units (0-19); Lyme Scn Total Ab w/Rflx <0.91 ISR (0.00-0.90)
== END ==
PROVIDERS: PCP Nurse Practitioner Family; Referring Provider Orthopaedic Surgery; Visit Provider Orthopaedic Surgery
DX: M75.41 Impingement syndrome of right shoulder (principal); M25.512 Pain in left shoulder; G62.9 Polyneuropathy, unspecified
CPT/HCPCS: 36415; 81374; 82945; 84157; 85025; 85652; 86038; 86140; 86200; 86431; 86618; 87070; 87075; 87205; 89050; 89051; 89060

== ENCOUNTER → 2020-01-22 08:26 | Outpatient (CLI) | payer MEDICARE, OTHER, SELFPAY ==
[2020-01-22 09:59] LABS: Hematocrit 41.5 % (40-54); Mean Corp Hgb Conc 31.3 g/dL (32-36); Mean Corpuscular Volume 95.6 fL (80-94); Mean Platelet Vol. 11.1 fl (6.2-12.0); Platelet Count 180 K/mm3 (150-450); RBC Distribution Width CV 14.6 % (11.6-14.6); RBC Distribution Width SD 51.4 fl (35.1-43.9); Red Blood Count 4.34 M/mm3 (4.6-6.2); White Blood Count 7.8 K/mm3 (4.4-11.0)
[2020-01-22 10:17] LABS: Hemoglobin A1c 5.6 % (3.8-5.6)
[2020-01-22 10:26] LABS: ALB/GLOB Ratio 1.1 RATIO (0.9-2.4); AST(SGOT) 22 U/L (15-37); Alanine Aminotransfer ALT/SGPT 26 U/L (16-61); Albumin, Serum 3.7 g/dL (3.2-5.0); Alkaline Phosphatase 98 U/L (45-117); Anion Gap 5 (5-15); BUN 15 mg/dL (7-18); BUN/Creat Ratio 13.3 RATIO (10-20); Bilirubin, Direct 0.17 mg/dL (0.00-0.30); Calcium,Total 9.1 mg/dL (8.5-10.1); Chloride 110 mmol/L (98-107); Cholesterol 157 mg/dL (200); Creatinine, Serum 1.13 mg/dL (0.70-1.30); EST Glomerular Filtration Rate 67 mL/min (>60); Est Glom Filt Rate - Afr Amer 81 mL/min (>60); Globulin 3.3 g/dL (2.2-4.2); Glucose 116 mg/dL (74-106); High Density Lipoprotein 55 mg/dL; Potassium 4.2 mmol/L (3.5-5.1); Sodium Level 142 mmol/L (136-145); Thyroid Stim Hormone (TSH) 0.99 uIU/mL (0.358-3.74); Triglycerides 69 mg/dL; Very Low Density Lipoprotein 14 mg/dL (5-40)
== END ==
PROVIDERS: PCP Nurse Practitioner Family; Referring Provider Nurse Practitioner Family; Visit Provider Nurse Practitioner Family
DX: I12.9 Hypertensive chronic kidney disease with stage 1 through stage 4 chronic kidney disease, or unspecified chronic kidney disease (principal); N18.9 Chronic kidney disease, unspecified; E78.5 Hyperlipidemia, unspecified; E03.9 Hypothyroidism, unspecified; R73.01 Impaired fasting glucose
CPT/HCPCS: 36415; 80053; 80061; 82248; 83036; 84439; 84443; 85027

== ENCOUNTER → 2020-10-14 09:01 | Outpatient (CLI) | payer MEDICARE, SELFPAY ==
[2020-10-14 10:53] LABS: AST(SGOT) 31 U/L (15-37); Alanine Aminotransfer ALT/SGPT 26 U/L (16-61); Albumin, Serum 3.6 g/dL (3.2-5.0); Alkaline Phosphatase 83 U/L (45-117); Bilirubin, Direct 0.19 mg/dL (0.00-0.30); Cholesterol 157 mg/dL (200); Globulin 2.8 g/dL (2.2-4.2); High Density Lipoprotein 45 mg/dL; Protein, Total 6.4 g/dL (6.4-8.2); Triglycerides 100 mg/dL; Very Low Density Lipoprotein 20 mg/dL (5-40)
== END ==
PROVIDERS: PCP Nurse Practitioner Family; Referring Provider Internal Medicine Cardiovascular Disease; Visit Provider Internal Medicine Cardiovascular Disease
DX: E78.00 Pure hypercholesterolemia, unspecified (principal)
CPT/HCPCS: 36415; 80061; 80076

== ENCOUNTER 2021-04-19 09:45 | Outpatient (CLI) | payer MEDICARE, SELFPAY ==
[2021-04-19 10:47] LABS: AST(SGOT) 43 U/L (15-37); Alanine Aminotransfer ALT/SGPT 28 U/L (16-61); Albumin, Serum 3.4 g/dL (3.2-5.0); Alkaline Phosphatase 84 U/L (45-117); Bilirubin, Direct 0.13 mg/dL (0.00-0.30); Cholesterol 181 mg/dL (200); Globulin 3.1 g/dL (2.2-4.2); High Density Lipoprotein 44 mg/dL; Protein, Total 6.5 g/dL (6.4-8.2); Triglycerides 119 mg/dL; Very Low Density Lipoprotein 24 mg/dL (5-40)
== END 2021-04-19 23:59 | disposition home or self-care (01) ==
LOC: LAB 09:46
PROVIDERS: PCP Nurse Practitioner Family; Visit Provider Internal Medicine Cardiovascular Disease
DX: E78.00 Pure hypercholesterolemia, unspecified (principal)
CPT/HCPCS: 36415; 80061; 80076

== ENCOUNTER 2021-07-14 18:35 | Emergency (ER) | payer MEDICARE, SELFPAY ==
[2021-07-14 18:36] VITALS: BP 177/105; PULSE 76; RESP 18; TEMP 36.8; O2SAT 96; BMI 34.5
--- NOTE | 2021-07-14 18:44 | CT_ITS ---
EXAM: CT HEAD WITHOUT INTRAVENOUS CONTRAST CLINICAL INDICATION: trauma TECHNIQUE: Multiple axial images were obtained of the head without intravenous contrast. CTDIvol = ( 44.99 ) mGy, DLP = ( 829.85 ) mGycm This CT exam was performed using one or more of the following dose reduction techniques: automated exposure control, adjustment of the mA and/or kV according to patient size, and/or use of iterative reconstruction technique. This report was created using [employer] report generation technology. COMPARISON: None. FINDINGS: BRAIN AND EXTRA-AXIAL SPACES: No acute intracranial hemorrhage, mass effect or edema. No evidence of acute cortical stroke. Periventricular small vessel ischemic change. No midline shift or hydrocephalus. Diffuse parenchymal atrophy. Posterior fossa structures are unremarkable. Basal cisterns are patent. BONES/JOINTS: Unremarkable. No discrete lytic or blastic abnormalities. VASCULATURE: Atherosclerotic calcifications of the carotid siphons and vertebrobasilar arteries. SINUSES: Unremarkable as visualized. Clear. MASTOID AIR CELLS: Visualized sinuses and mastoid air cells are clear. ORBITS: Visualized globes, extraocular muscles, optic nerves and retrobulbar fat appear unremarkable. CT/Brain/Head without Contrast IMPRESSION: 1. No evidence of acute intracranial pathology. 2. Diffuse involutional changes and chronic ischemic small vessel white matter disease. Electronically Signed: Anson Menjivar MD at 20:16 EDT ,
--- NOTE | 2021-07-14 18:45 | EDS_ITS ---
HPI HPI - Fall History of Present Illness Chief Complaint: Fall Narrative Narrative: Presents after mechanical fall down a few steps, he has an abrasion over the right forearm and elbow region, he also did hit the right side of his head. He has no neck pain no other injury. 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 Bilateral rotator cuff dysfunction Bilateral shoulder pain Claudication Crohns disease Essential (primary) hypertension GERD (gastroesophageal reflux disease) Hiatal hernia Hyperlipidemia Lower extremity edema Myocardial infarction Neuropathy Obesity Pancreatitis Home Medications aspirin 81 mg chewable tablet 81 mg PO DAILY 04/13/17 [History Last Taken Unknown] levothyroxine 150 mcg capsule 150 mcg PO DAILY 04/13/17 [History Last Taken Unknown] nitroglycerin 400 mcg/spray translingual 0.4 mg TRANSLINGUAL Q5M PRN 04/13/17 [History Last Taken Unknown] omeprazole 20 mg capsule,delayed release 20 mg PO DAILY 04/13/17 [History Last Taken 03/20/19] albuterol sulfate 90 mcg/actuation aerosol inhaler 1 puff INHALATION PRN PRN 03/15/19 [History Last Taken Unknown] mesalamine 2 tab PO DAILY 03/19/19 [History Last Taken Unknown] tamsulosin 0.4 mg capsule 0.4 mg PO DAILY 04/16/19 [History Last Taken Unknown] magnesium oxide 400 mg (241.3 mg magnesium) tablet 400 mg PO .QOD #45 tab 07/19/19 [Rx Last Taken Unknown] furosemide 40 mg tablet 40 mg PO DAILY PRN tab 09/26/19 [History Last Taken Unknown] losartan 50 mg tablet 50 mg PO DAILY #90 tab 08/24/20 [Rx Last Taken Unknown] metoprolol tartrate 100 mg tablet 100 mg PO DAILY #180 tab 12/07/20 [Rx Last Taken Unknown] ezetimibe 10 mg tablet 10 mg PO DAILY #30 tab 03/18/21 [Rx Last Taken Unknown] Allergy/AdvReac Type Severity Reaction Status Date / Time simvastatin Allergy Intermediate Myalgias Verified 07/14/21 18:38 atorvastatin AdvReac Intermediate Myalgias Verified 07/14/21 18:38 in legs rosuvastatin [From Crestor] AdvReac Intermediate Myalgias Verified 07/14/21 18:38 Family History Mother CAD (coronary artery disease) Father Hyperlipidemia Esophageal cancer Sister Hyperlipidemia CAD (coronary artery disease) CABG Surgical History H/O coronary artery bypass surgery (09/1996) History of arthroscopic procedure on shoulder History of bunionectomy History of herniorrhaphy History of herniorrhaphy History of open reduction and internal fixation (ORIF) procedure History of repair of rotator cuff (03/20/19) Hx of cataract surgery Social History Smoking Status: Former smoker alcohol intake: current alcohol intake frequency: a few times a week Alcohol type: beer and wine substance use type: does not use ROS ROS ED ROS Narrative Social: Noncontributory Medications: Reviewed Past medical history: Reviewed Review of systems General: Head injury without loss of consciousness HEENT: No facial injury Neck: No neck pain Cardiovascular: Patient denies any chest pain or palpitations Chest wall: No chest wall contusions Respiratory: There is no shortness of breath GI: There is no nausea vomiting diarrhea or abdominal pain, no abdominal wall contusions Skin: Forearm abrasion Neurological: Patient has no memory loss, confusion, or any focal weakness Psychiatric: No recent behavioral changes Back: No back pain, no problems with ambulation Musculoskeletal: Forearm and elbow injury on the right All other systems are reviewed and normal EXAM Physical Exam Narrative Exam Narrative: Physical exam Vitals reviewed General: Patient does not appear in significant distress HEENT: No facial injury Head: I do not see any signs of head injury. Eyes: Extraocular movements intact Neck: No C-spine tenderness with full range of motion Heart: Regular rate normal pulses Chest wall: No chest wall pain Lungs clear lungs bilaterally with normal inspiration and expiration without tachypnea GI: Abdomen is soft and nontender there is no mass no guarding no abdominal wall contusion : Stable pelvis Musculoskeletal: There is a large abrasion of the right dorsum forearm extending to the elbow this is about 15 x 10 cm, the skin has been AVULSED. There is no pain with pronation supination flexion or extension and there seems to be no bony tenderness. Skin: As above Neurological: Patient is alert and oriented with no focal deficits Const Vital Signs: 07/14/21 18:36 Temperature 98.2 F Temperature Source Temporal Pulse Rate 76 Respiratory Rate 18 Blood Pressure 177/105 H Blood Pressure Mean 129 Pulse Ox 96 Oxygen Delivery Method Room Air MDM MDM MDM Narrative Medical decision making narrative: Tetanus updated, wound care performed by nurse, we will do wet-to-dry dressings and sent home some supplies with the patient, imaging is unremarkable Radiography Diagnostic Testing: Clinical Impression(s) from Imaging Studies Brain CT 07/14/21 18:44 IMPRESSION: 1. No evidence of acute intracranial pathology. 2. Diffuse involutional changes and chronic ischemic small vessel white matter disease. Electronically Signed: Anson Menjivar MD at 20:16 EDT , Elbow X-Ray 07/14/21 19:05 IMPRESSION: No acute or healing fracture or malalignment. Electronically Signed: Anson Menjivar MD at 19:31 EDT , Elbow x-ray read by me and radiologist are normal Discharge Plan Triage Chief Complaint: Fall ED Provider: Siva Henriquez Dx/Rx/DC Orders Clinical Impression: Fall, Abrasion of skin Instructions: ED Wound Care Prescriptions: No Action nitroglycerin [Nitrolingual] 400 mcg/spray spray,non-aerosol 0.4 mg Translingual Q5M PRN (Reason: chest pain) RF: 0 levothyroxine 150 mcg capsule 150 mcg capsule 150 mcg PO DAILY RF: 0 aspirin 81 mg tablet,chewable 81 mg PO DAILY RF: 0 omeprazole 20 mg capsule,delayed release(DR/EC) 20 mg PO DAILY RF: 0 tamsulosin 0.4 mg capsule 0.4 mg PO DAILY RF: 0 albuterol sulfate 90 mcg/actuation HFA aerosol inhaler 1 puff INHALATION PRN PRN (Reason: breathing) RF: 0 furosemide 40 mg tablet 40 mg PO DAILY PRNRF: 0 mesalamine 0.375 GM capsule,extended release 24hr 2 tab PO DAILY RF: 0 magnesium oxide 400 mg (241.3 mg magnesium) tablet 400 mg PO .QOD Qty: 45 RF: 3 losartan 50 mg tablet 50 mg PO DAILY Qty: 90 RF: 3 metoprolol tartrate 100 mg tablet 100 mg PO DAILY Qty: 180 RF: 3 ezetimibe [Zetia] 10 mg tablet 10 mg PO DAILY Qty: 30 RF: 11 Primary Care Provider: Jeremi Reinoso NP Referrals: Jeremi Reinoso NP, [employer]OP[employer]GER[employer] [Primary Care Provider] - 2 Days Disposition Disposition: Home, Self Care
--- NOTE | 2021-07-14 19:05 | RAD_ITS ---
EXAM: XR RIGHT ELBOW COMPLETE, 3 OR MORE VIEWS CLINICAL INDICATION: trauma TECHNIQUE: Frontal, lateral and oblique views of the right elbow. This report was created using [employer] report generation technology. COMPARISON: None. FINDINGS: BONES/JOINTS: No acute or healing fracture or malalignment. No significant joint effusion. Joint spaces are maintained. Minimal enthesopathy along the lateral epicondyle. No unusual lytic or sclerotic lesions of bone. SOFT TISSUES: No other soft tissue abnormalities. No soft tissue swelling or gas. No radiopaque foreign body. VASCULATURE: Peripheral vascular calcifications. RAD/Elbow min 3 Views IMPRESSION: No acute or healing fracture or malalignment. Electronically Signed: Anson Menjivar MD at 19:31 EDT ,
[2021-07-14] MEDS: Diphth,Pertuss(Acell),Tet Vac 0.5 ML Vial IM (19:29)
== END 2021-07-14 20:26 | disposition home or self-care (01) ==
PROVIDERS: Emergency Provider Emergency Medicine; PCP Nurse Practitioner Family; Visit Provider Emergency Medicine
DX: S50.811A Abrasion of right forearm, initial encounter (principal); K50.90 Crohn's disease, unspecified, without complications; W10.9XXA Fall (on) (from) unspecified stairs and steps, initial encounter; I25.10 Atherosclerotic heart disease of native coronary artery without angina pectoris; I25.2 Old myocardial infarction; I10 Essential (primary) hypertension; E78.5 Hyperlipidemia, unspecified; K21.9 Gastro-esophageal reflux disease without esophagitis; E66.9 Obesity, unspecified; Z68.34 Body mass index [BMI] 34.0-34.9, adult; Z95.1 Presence of aortocoronary bypass graft; Z79.82 Long term (current) use of aspirin; Z79.899 Other long term (current) drug therapy; Z87.891 Personal history of nicotine dependence
CPT/HCPCS: 70450; 73080; 90715; 99282

== ENCOUNTER → 2021-12-20 | Outpatient (CLI) | payer MEDICARE, SELFPAY ==
[2021-12-20 10:36] LABS: AST(SGOT) 29 U/L (15-37); Alanine Aminotransfer ALT/SGPT 23 U/L (16-61); Albumin, Serum 3.8 g/dL (3.2-5.0); Alkaline Phosphatase 108 U/L (45-117); Bilirubin, Direct 0.22 mg/dL (0.00-0.30); Cholesterol 141 mg/dL (200); Globulin 3.2 g/dL (2.2-4.2); High Density Lipoprotein 38 mg/dL; Triglycerides 158 mg/dL; Very Low Density Lipoprotein 32 mg/dL (5-40)
== END | disposition home or self-care (01) ==
PROVIDERS: PCP Nurse Practitioner Family; Referring Provider Internal Medicine Cardiovascular Disease; Visit Provider Internal Medicine Cardiovascular Disease
DX: E78.00 Pure hypercholesterolemia, unspecified (principal)
CPT/HCPCS: 36415; 80061; 80076

== ENCOUNTER → 2022-01-11 | Outpatient (CLI) | payer MEDICARE, SELFPAY ==
--- NOTE | 2022-01-11 06:21 | MRI_ITS ---
EXAM: MR LEFT UPPER EXTREMITY WITHOUT INTRAVENOUS CONTRAST, SHOULDER CLINICAL INDICATION: pain TECHNIQUE: Multiplanar and multisequence MR images of the left shoulder without intravenous contrast. This report was created using [employer] report generation technology. COMPARISON: A FINDINGS: TENDONS: SUPRASPINATUS: Full-thickness full width tear in the supraspinatus tendon with failure at the footprint. INFRASPINATUS: Low-grade partial-thickness articular sided tear of the infraspinatus tendon at the footprint. SUBSCAPULARIS: Full-thickness full width tear involving the subscapularis tendon (failure at the footprint) with associated torn and disrupted long head of biceps tendon, not seen within the bicipital groove. TERES MINOR: Unremarkable. Intact. BICEPS BRACHII, LONG HEAD: See above. LIGAMENTS: GLENOHUMERAL: Unremarkable. Intact. CORACOACROMIAL: Type II acromion with curved undersurface. Coracoacromial ligament is thickened. No significant enthesophyte. No os acromiale. MUSCLES: Unremarkable. No rotator cuff muscle atrophy. FLUID: Large glenohumeral joint effusion with synovitis. No intra-articular ossific bodies. Fluid in the subacromial/subdeltoid bursa extending from the glenohumeral joint through the full thickness rotator cuff tear. CARTILAGE: Unremarkable. Articular cartilage intact. GLENOID LABRUM: Unremarkable. Intact, limited evaluation on non-arthrographic exam. BONES/JOINTS: Moderate hypertrophic degenerative changes of the acromioclavicular joint with fluid within the joint. No concerning bone marrow signal alterations. Global labral degeneration without tearing involving the posterior superior and posterior labrum. No fracture. OTHER SOFT TISSUES: Unremarkable. No rotator interval edema. MRI/Upper Ext Joint Only(Routine) IMPRESSION: 1. Tearing involving the posterior superior and posterior labrum. 2. Full-thickness full width tear in the supraspinatus tendon with failure at the footprint. 3. Full-thickness full width tear involving the subscapularis tendon (failure at the footprint) with associated torn and disrupted long head of biceps tendon. 4. Low-grade partial-thickness articular sided tear of the infraspinatus tendon. Electronically Signed: Anson Menjivar MD at 22:45 EST ,
--- NOTE | 2022-01-11 08:50 | ART_ITS ---
Reason For Study: Claudication Procedure A bilateral lower extremity continuous wave Doppler with analog waveform analysis,segmental pressures,and ankle brachial indexes without exercise. Left Segmental Pressures Left brachial= 149mmHg. Left posterior tibial artery = 201mmHg. Left dorsalis pedis artery = 189mmHg. Left digit = 43 mmHg. The left dorsalis pedis waveforms are triphasic. The left posterior tibial artery waveforms are triphasic. Right Segmental Pressures Right brachial= 149mmHg. Right posterior tibial artery = 167mmHg. Right dorsalis pedis artery = 183mmHg. Right digit = 44 mmHg. The right dorsalis pedis waveforms are triphasic. The right posterior tibial artery waveforms are triphasic. Indices The right ankle brachial index by the dorsalis pedis is 1.23. The right ankle brachial index by the posterior tibial artery is 1.12. The right digital-brachial index is 0.30. The left ankle brachial index by the dorsalis pedis is 1.27. The left ankle brachial index by the posterior tibial artery is 1.35. The left digital-brachial index is 0.29. VL/Lower Ext Art Exam w/o Exercis Interpretation Summary Normal right posterior tibial and dorsalis pedis ankle-brachial indices of 1.12 and 1.23 respectively with normal triphasic Doppler waveforms Abnormal right digital brachial index of 0.3 suggesting distal small vessel dis ease or temperature affect Normal left lower extremity posterior tibialis and dorsalis pedis ankle-brachia l indices at rest of 1.35 and 1.27 respectively with normal triphasic Doppler waveforms. Abnormal left digital brachial index of 0.29 suggesting distal small vessel dis ease or temperature affect Ordering Physician: Amanda Nolan Referring Physician: Jeremi Reinoso Performed By: Hilda Fang RVT
== END | disposition home or self-care (01) ==
PROVIDERS: PCP Nurse Practitioner Family; Referring Provider Physician Assistant Medical; Visit Provider Physician Assistant Medical
DX: I73.9 Peripheral vascular disease, unspecified (principal); R07.9 Chest pain, unspecified
CPT/HCPCS: 73221; 93923

== ENCOUNTER → 2022-01-21 | Outpatient (CLI) | payer MEDICARE, SELFPAY ==
--- NOTE | 2022-01-24 08:21 | STRESSREP_ITS ---
Stress Test Report Pharmacologic myocardial perfusion stress test. 82-year-old man with a history of chest pain Resting EKG demonstrates sinus rhythm with a rate of 71 bpm. Resting blood pressure is 162/82 mmHg. 0.4 mg of regadenoson was infused per usual protocol followed by rapid intravenous saline flush injection. Continuous EKG monitoring was performed. The maximum heart rate was 114 bpm which was 81% of max impacted heart rate the maximum workload was 1 metabolic equivalent. At rest there were no ST or T wave changes noted to suggest ischemia and at peak infusion nonspecific ST changes were noted with did not meet the criteria for ischemia. Occasional premature ventricular complexes noted. No clinical angina is noted. The final blood pressure was 160/84 mmHg. Myocardial perfusion protocol. 13.5 mCi of technetium 99m sestamibi was injected at rest. 0.4 mg of regadenoson was infused per usual protocol. At peak infusion 45.0 mCi of te chnetium 99m sestamibi was injected stress images were obtained stress and rest images were reconstructed and compared in the short axis vertical long and horizontal long axis. Gated images were also obtained. Perfusion SPECT analysis: Review of the stress images demonstrate normal uptake of tracer noted in all areas of the myocardium. The resting images similar demonstrated normal uptake of tracer noted in all areas of the myocardium. No areas of reversibility are noted to suggest ischemia and no previous infarct is noted. Gated SPECT analysis: The gated ejection fraction is 70%. Conclusion: Normal pharmacologic myocardial perfusion stress test. Preserved ejection fraction.
== END | disposition home or self-care (01) ==
LOC: CVS 06:51
PROVIDERS: PCP Nurse Practitioner Family; Visit Provider Internal Medicine Cardiovascular Disease
DX: R07.9 Chest pain, unspecified (principal); I73.9 Peripheral vascular disease, unspecified
CPT/HCPCS: 78452; 93017; A9500; A4216; J2785

== ENCOUNTER → 2022-05-17 | Outpatient (CLI) | payer MEDICARE, SELFPAY ==
--- NOTE | 2022-05-17 09:53 | CDU_ITS ---
Reason For Study: SUDDEN DIZZINESS W/NL HR & BP Rt. Velocities/BP Lt. Velocities/BP Prox CCA 80.9/17.6 cm/sec. Prox CCA 157.8/17.3 cm/sec. Mid CCA 81.8/13.8 cm/sec. Mid CCA 100.8/16.8 cm/sec. Dist CCA 82.8/16.6 cm/sec. Dist CCA 117.3/18.6 cm/sec. Prox ICA 99.2/18.0 cm/sec. Prox ICA 49.3/14.2 cm/sec. Mid ICA 112.4/13.6 cm/sec. Mid ICA 87.5/24.8 cm/sec. Dist ICA 90.4/24.6 cm/sec. Dist ICA 95.2/27.0 cm/sec. Rt. ICA/CCA = 112.4/82.8=1.4. Lt. ICA/CCA = 95.2/100.8=0.9. Prox ECA 110.0/4.4 cm/sec. Prox ECA 119.1/5.8 cm/sec. Rt. Vert. 61.3/15.8 cm/sec. Lt. Vert. 61.1/14.9 cm/sec. Right Extracranial There is heterogeneous, irregular atherosclerotic plaque noted in the right common carotid artery. There is heterogeneous, irregular atherosclerotic plaque noted in the right internal carotid artery. There is heterogeneous, smooth atherosclerotic plaque noted in the right external carotid artery. Antegrade flow is noted in the right vertebral artery. Left Extracranial There is heterogeneous, irregular atherosclerotic plaque noted in the left common carotid artery. There is heterogeneous, irregular atherosclerotic plaque noted in the left internal carotid artery. There is intimal thickening but no significant atherosclerotic plaque noted in the left external carotid artery. Antegrade flow is noted in the left vertebral artery. Procedure Carotid Duplex [id number]. This is a Carotid Duplex examination using B-mode, color flow and specral Doppler. Exam performed in department. VL/Carotid Duplex Ultrasound Interpretation Summary Mild (<50%) stenosis right extracranial internal carotid. Mild (<50%) stenosis left extracranial internal carotid. Patent and antegrade vertebrals bilaterally. Ordering Physician: Law Andre Referring Physician: Jeremi Reinoso Performed By: Margoth Fisher, [place], RVT
== END | disposition home or self-care (01) ==
PROVIDERS: PCP Nurse Practitioner Family; Referring Provider Internal Medicine Cardiovascular Disease; Visit Provider Internal Medicine Cardiovascular Disease
DX: R42 Dizziness and giddiness (principal); I73.9 Peripheral vascular disease, unspecified; I25.10 Atherosclerotic heart disease of native coronary artery without angina pectoris
CPT/HCPCS: 93880

== ENCOUNTER → 2022-07-25 | Outpatient (CLI) | payer MEDICARE, SELFPAY ==
[2022-07-25 10:24] LABS: Hematocrit 44.2 % (40-54); Mean Corp Hgb Conc 31.7 g/dL (32-36); Mean Corpuscular Hgb 30.4 pg (27.0-32.0); Mean Corpuscular Volume 95.9 fL (80-94); Mean Platelet Vol. 10.7 fl (6.2-12.0); Platelet Count 148 K/mm3 (150-450); RBC Distribution Width CV 14.1 % (11.6-14.6); RBC Distribution Width SD 49.1 fl (35.1-43.9); Red Blood Count 4.61 M/mm3 (4.6-6.2)
[2022-07-25 10:59] LABS: PTHIN 62.2 pg/mL (18.4-80.1)
[2022-07-25 11:20] LABS: ALB/GLOB Ratio 1.1 RATIO (0.9-2.4); AST(SGOT) 28 U/L (15-37); Alanine Aminotransfer ALT/SGPT 23 U/L (16-61); Albumin, Serum 3.6 g/dL (3.2-5.0); Alkaline Phosphatase 97 U/L (45-117); Anion Gap 3 (5-15); BUN 19 mg/dL (7-18); BUN/Creat Ratio 11.8 RATIO (10-20); Calcium,Total 9.3 mg/dL (8.5-10.1); Chloride 108 mmol/L (98-107); Cholesterol 173 mg/dL (200); Creatinine, Serum 1.61 mg/dL (0.70-1.30); EST Glomerular Filtration Rate 44 mL/min (>60); Est Glom Filt Rate - Afr Amer 53 mL/min (>60); Globulin 3.2 g/dL (2.2-4.2); Glucose 89 mg/dL (74-106); High Density Lipoprotein 48 mg/dL; Protein, Total 6.8 g/dL (6.4-8.2); Sodium Level 139 mmol/L (136-145); T4 Free Direct 1.32 ng/dL (0.76-1.46); Thyroid Stim Hormone (TSH) 0.35 uIU/mL (0.358-3.74); Triglycerides 80 mg/dL; Very Low Density Lipoprotein 16 mg/dL (5-40)
== END | disposition home or self-care (01) ==
LOC: LAB 09:58
PROVIDERS: PCP Nurse Practitioner Family; Referring Provider Nurse Practitioner Family; Visit Provider Nurse Practitioner Family
DX: E55.9 Vitamin D deficiency, unspecified (principal); I12.9 Hypertensive chronic kidney disease with stage 1 through stage 4 chronic kidney disease, or unspecified chronic kidney disease; N18.9 Chronic kidney disease, unspecified; D53.9 Nutritional anemia, unspecified; R73.01 Impaired fasting glucose; E78.5 Hyperlipidemia, unspecified; E03.9 Hypothyroidism, unspecified
CPT/HCPCS: 36415; 80053; 80061; 82306; 83970; 84244; 84439; 84443; 85027

== ENCOUNTER → 2022-10-22 | Outpatient (CLI) | payer MEDICARE, SELFPAY ==
--- NOTE | 2022-10-22 08:40 | MRI_ITS ---
EXAM: MR CERVICAL SPINE WITHOUT INTRAVENOUS CONTRAST CLINICAL INDICATION: right sided neck pain, rt shoulder pain TECHNIQUE: Multiplanar and multisequence MR images of the cervical spine without intravenous contrast were performed. COMPARISON: Cervical spine radiographs, 10/03/2022. FINDINGS: VERTEBRAE: No fracture. Straightening of the expected cervical lordosis. No suspicious marrow space signal abnormalities. Multilevel facet and endplate osteophytosis. OTHER BONES/JOINTS: Median sternotomy wire associated susceptibility is present. SPINAL CORD: No definite spinal cord signal abnormality is identified. Mild multilevel mass effect upon the spinal cord. SOFT TISSUES: No significant abnormality. No prevertebral soft tissue swelling. LYMPH NODES: No significant abnormality. There is no cervical adenopathy. DISCS/SPINAL CANAL/NEURAL FORAMINA: C2-C3: No significant abnormality. No disc herniation, spinal canal stenosis, or neural foraminal narrowing. C3-C4: Small central disc herniation, right greater than left facet and uncovertebral joint arthrosis, and endplate osteophytosis resulting in mild spinal canal stenosis, moderate to severe right neural foraminal narrowing, and moderate left neural foraminal narrowing. C4-C5: Right central disc herniation effacing the ventral CSF space and abutting the ventral spinal cord resulting in mild to moderate spinal canal stenosis. Facet and uncovertebral joint arthrosis resulting in bilateral mild neural foraminal narrowing. C5-C6: Right central disc herniation superimposed upon a disc bulge resulting in mild spinal canal stenosis. Facet and uncovertebral joint arthrosis with mild bilateral neural foraminal narrowing. C6-C7: Central disc herniation superimposed upon a disc bulge effacing the ventral CSF space and impressing upon the ventral spinal cord. Mild to moderate spinal canal stenosis. No significant neural foraminal narrowing. C7-T1: Mild bilateral facet arthrosis. Mild right neural foraminal narrowing. No significant spinal canal stenosis or disc herniation. MRI/Spine Cervical (Routine) IMPRESSION: Degenerative changes at multiple levels resulting in [id number] multilevel spinal canal and variable degrees of neural foraminal stenosis. No distinct spinal cord signal abnormality. Consider spine surgery consultation. Electronically Signed: Rob Epstein DO at 10:07 EDT ,
== END | disposition home or self-care (01) ==
LOC: MRI 08:39
PROVIDERS: PCP Nurse Practitioner Family; Referring Provider Physician Assistant; Visit Provider Physician Assistant
DX: M47.22 Other spondylosis with radiculopathy, cervical region (principal)
CPT/HCPCS: 72141

== ENCOUNTER → 2023-03-21 | Outpatient (CLI) | payer MEDICARE, SELFPAY ==
[2023-03-21 15:17] LABS: BNP,B-Type NATRIURETIC PEPTIDE 200.2 pg/mL (0-100)
== END | disposition home or self-care (01) ==
LOC: MTLAB 13:25
PROVIDERS: PCP Nurse Practitioner Family; Referring Provider Internal Medicine Pulmonary Disease; Visit Provider Internal Medicine Pulmonary Disease
DX: I50.22 Chronic systolic (congestive) heart failure (principal)
CPT/HCPCS: 36415; 83880

== ENCOUNTER → 2023-04-12 | Outpatient (CLI) | payer MEDICARE, SELFPAY | END | disposition home or self-care (01) | LOC: LABSPEC 08:36 | PROVIDERS: PCP Nurse Practitioner Family; Referring Provider Internal Medicine Pulmonary Disease; Visit Provider Internal Medicine Pulmonary Disease | DX: R05.9 Cough, unspecified (principal); R06.02 Shortness of breath | CPT/HCPCS: 87015; 87070; 87116; 87205; 87206 ==

== ENCOUNTER → 2023-04-13 | Outpatient (CLI) | payer MEDICARE, SELFPAY | END | disposition home or self-care (01) | LOC: LAB 09:21 | PROVIDERS: PCP Nurse Practitioner Family; Referring Provider Internal Medicine Pulmonary Disease; Visit Provider Internal Medicine Pulmonary Disease | DX: R05.9 Cough, unspecified (principal); R06.02 Shortness of breath | CPT/HCPCS: 87015; 87070; 87116; 87205; 87206 ==

== ENCOUNTER → 2023-04-14 | Outpatient (CLI) | payer MEDICARE, SELFPAY | END | disposition home or self-care (01) | LOC: LAB 09:25 | PROVIDERS: PCP Nurse Practitioner Family; Referring Provider Internal Medicine Pulmonary Disease; Visit Provider Internal Medicine Pulmonary Disease | DX: R05.9 Cough, unspecified (principal); R06.02 Shortness of breath | CPT/HCPCS: 87070; 87205 ==

== ENCOUNTER → 2023-04-18 | Outpatient (CLI) | payer MEDICARE, SELFPAY ==
--- NOTE | 2023-04-18 14:51 | CT_ITS ---
INDICATION: COUGH EXAMINATION: CT CHEST WITHOUT CONTRAST - CT Chest W/O Contrast Injection TECHNIQUE: Helically acquired images were obtained of the chest. A radiation dose optimization technique was used for this scan. IV Contrast dosage and agent: None. RADIATION DOSAGE (If Supplied By Facility): CTDIvol = ( 15.30 ) mGy, DLP = ( 588.67 ) mGycm COMPARISON: No relevant prior comparison study available FINDINGS: LUNGS, PLEURA AND LARGE AIRWAYS: 3 mm right upper lobe nodule on image 60 series 4 which no further follow-up exam is needed. Additional 2 mm right upper lobe nodule. Focal stranding in the right lower lobe associated with mild bronchiectatic changes likely due to previous infection or scarring. Mild stranding/scarring in the left lower lobe. No focal consolidation. No pleural effusion or thickening. No pneumothorax. THYROID: No thyroid lesions. HEART AND PERICARDIUM: Heart size is normal. No pericardial effusion. Status post median sternotomy and CABG CORONARY ARTERIES: Coronary artery calcification is seen. VESSELS: Atherosclerotic calcifications of the thoracic aorta without evidence of aneurysm. MEDIASTINUM AND DAVID: No mediastinal or hilar adenopathy. Esophagus is unremarkable. No hiatal hernia. UPPER ABDOMEN: No acute pathology. BONES: No suspicious lytic or blastic abnormality. CT/Chest without Contrast IMPRESSION: 1. Mild stranding and bronchiectatic changes in the right lower lobe likely due to scarring or previous infectious process. 2. Otherwise no acute pulmonary infiltrate, adenopathy or pleural effusions. 3. Status post CABG. Electronically Signed: Kasi Kaye MD at 8:54 EST ,
== END | disposition home or self-care (01) ==
LOC: CT 14:49
PROVIDERS: PCP Nurse Practitioner Family; Referring Provider Internal Medicine Pulmonary Disease; Visit Provider Internal Medicine Pulmonary Disease
DX: R05.9 Cough, unspecified (principal); I27.20 Pulmonary hypertension, unspecified; I50.20 Unspecified systolic (congestive) heart failure; R06.02 Shortness of breath
CPT/HCPCS: 71250

== ENCOUNTER → 2023-07-06 | Outpatient (CLI) | payer MEDICARE, SELFPAY ==
--- NOTE | 2023-07-06 11:02 | ECHOD_ITS ---
Reason For Study: COUGH, PHTN Procedure This was a 2D Doppler, Color Flow transthoracic echocardiogram. Exam performed in department. Left Ventricle Normal LV size. The estimated ejection fraction is 60 %. Diastolic function is indeterminate. No regional wall motion abnormalities noted. Right Ventricle Normal RV size. Normal systolic function. Atria Normal left atrium. Normal right atrium. No doppler evidence for ASD. Mitral Valve There is no mitral valve stenosis. No mitral valve insufficiency. Tricuspid Valve There is no tricuspid stenosis. Mild tricuspid valve insufficiency. Pulmonary artery systolic pressure is 35-40 mmHg. Aortic Valve Trisinus/trileaflet aortic valve. Aortic sclerosis, no stenosis. There is no aortic stenosis. No aortic valve insufficiency. Pulmonic Valve There is no pulmonic valvular stenosis. No pulmonic valve insufficiency. Great Vessels Normal aortic root. Pericardium/Pleural No pericardial effusion. MMode/2D Measurements & Calculations LVIDd: 4.9 cm IVSd: 1.2 cm Ao root diam: 3.3 cm LVIDs: 3.6 cm LVPWd: 1.1 cm RVDd: 3.6 cm FS: 27.5 % LAV(MOD-bp): 37.8 ml LVAd ap4: 22.2 cm2 SV(MOD-sp4): 29.7 ml LAV(MOD-bp) Indexed: 18.4 ml/m2 LVLd ap4: 7.4 cm LAV(MOD-sp2): 37.8 ml EDV(MOD-sp4): 54.6 ml LAV(MOD-sp4): 37.8 ml EDV(sp4-el): 56.2 ml LVAs ap4: 13.5 cm2 LVLs ap4: 6.4 cm ESV(MOD-sp4): 24.9 ml ESV(sp4-el): 24.2 ml EF(MOD-sp4): 54.5 % EF(sp4-el): 56.9 % SV(sp4-el): 32.0 ml LA A4 area: 14.5 cm2 LA dimension(2D): 4.1 cm RA A4 area: 10.3 cm2 TAPSE: 1.4 cm Time Measurements MV dec time: 0.17 sec Doppler Measurements & Calculations MV E max keith: 64.5 cm/sec Lat Peak E' Keith: 10.6 cm/sec Med Peak E' Keith: 6.1 cm/sec MV A max keith: 77.4 cm/sec E/E' lat: 6.1 E/E' med: 10.6 MV E/A: 0.83 MV V2 max: 84.4 cm/sec MV P1/2t max keith: 74.5 cm/sec Ao V2 max: 141.3 cm/sec MV max P.8 mmHg MV P1/2t: 60.2 msec Ao max P.0 mmHg MV V2 mean: 41.7 cm/sec Ao V2 mean: 101.7 cm/sec MV mean P.84 mmHg MV dec slope: 362.9 cm/sec2 Ao mean P.7 mmHg MV V2 VTI: 21.5 cm MVA(P1/2t): 3.7 cm2 Ao V2 VTI: 32.4 cm AV (velocity ratio): 0.67 LV V1 max: 95.2 cm/sec PA V2 max: 150.1 cm/sec TR max keith: 286.6 cm/sec LV V1 max P.6 mmHg PA V2 mean: 90.5 cm/sec TR max P.9 mmHg LV V1 mean P.0 mmHg LV V1 mean: 65.0 cm/sec LV V1 VTI: 21.6 cm ECHO/Echo Complete Interpretation Summary The estimated ejection fraction is 60 %. Diastolic function is indeterminate. Ordering Physician: Yunier Briscoe V Referring Physician: Marin Reinoso: Law Andre Performed By: Margoth Fisher, JACS, RVT
== END | disposition home or self-care (01) ==
LOC: CVS 10:51
PROVIDERS: PCP Nurse Practitioner Family; Referring Provider Internal Medicine Pulmonary Disease; Visit Provider Internal Medicine Pulmonary Disease
DX: I27.20 Pulmonary hypertension, unspecified (principal); R05.9 Cough, unspecified
CPT/HCPCS: 93306

== ENCOUNTER 2023-12-01 18:13 | Emergency (ER) | payer MEDICARE, SELFPAY ==
[2023-12-01 18:14] VITALS: BP 131/68; PULSE 75; RESP 16; TEMP 35.7; O2SAT 96
--- NOTE | 2023-12-01 18:48 | ED.RN ---
family member reports they are going to go to [facility] to hope to be seen sooner.
== END 2023-12-01 18:48 | disposition left against medical advice (07) ==
LOC: ED 18:57
PROVIDERS: PCP Nurse Practitioner Family
DX: Z53.21 Procedure and treatment not carried out due to patient leaving prior to being seen by health care provider (principal)

== ENCOUNTER → 2024-06-03 | Outpatient (CLI) | payer MEDICARE, SELFPAY ==
--- NOTE | 2024-06-03 12:38 | ART_ITS ---
Reason For Study Reason For Study: Claudication Procedure A bilateral lower extremity continuous wave Doppler with analog waveform analysis,segmental pressures,and ankle brachial indexes without exercise. Left Segmental Pressures Left brachial= 141mmHg. Left posterior tibial artery = 163mmHg. Left dorsalis pedis artery = 172mmHg. Left digit = 66 mmHg. The left dorsalis pedis waveforms are triphasic. The left posterior tibial artery waveforms are biphasic. Right Segmental Pressures Right brachial= 140mmHg. Right posterior tibial artery = 172mmHg. Right dorsalis pedis artery = 182mmHg. Right digit = 54 mmHg. The right dorsalis pedis waveforms are triphasic. The right posterior tibial artery waveforms are biphasic. Indices The right ankle brachial index by the dorsalis pedis is 1.29. The right ankle brachial index by the posterior tibial artery is 1.22. The right digital-brachial index is 0.38. The left ankle brachial index by the dorsalis pedis is 1.22. The left ankle brachial index by the posterior tibial artery is 1.16. The left digital-brachial index is 0.47. VL/Lower Ext Art Exam w/o Exercis Interpretation Summary Right STANLEY 1.29, normal. Doppler/PVR waveforms of the right leg normal at rest. TBI diminished, pedal/digit disease vs spasm. Left STANLEY 1.22, normal. Doppler/PVR waveforms of the left leg normal at rest. TB I diminished, pedal/digit disease vs spasm. Ordering Physician: Amanda King Referring Physician: AMANDA KING Performed By: LISETTE OBREGON [facility]
== END | disposition home or self-care (01) ==
LOC: CVS 12:38
PROVIDERS: PCP Nurse Practitioner Family; Referring Provider Physician Assistant Medical; Visit Provider Physician Assistant Medical
DX: I73.9 Peripheral vascular disease, unspecified (principal)
CPT/HCPCS: 93923

== ENCOUNTER → 2025-01-07 | Outpatient (CLI) | payer MEDICARE, SELFPAY ==
--- NOTE | 2025-01-07 10:10 | MRI_ITS ---
PROCEDURE: UPPER EXT JOINT ONLY(ROUTINE) 01/07/2025 REASON FOR EXAM: EVAL CUFF TENDON, PLANNING FOR RTSA TECHNIQUE: Procedure Code: [id number] Modality: MR Procedure: UPPER EXT JOINT ONLY(ROUTINE) Multiplanar and multisequence images were obtained without IV contrast administration. COMPARISON: COMPARISON: None provided. FINDINGS: Moderate right acromioclavicular joint degenerative changes are seen. A small fluid collection is seen extending from the right acromioclavicular joint, likely representing a superior ganglion cyst. Another cyst more laterally may represent extension of the same process. 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 Chronic appearing complete disruption of the supraspinatus and infraspinatus tendons with severe retraction. Marked atrophy of both muscles is also noted. Right glenohumeral joint advanced degenerative changes are seen, with marked associated articular cartilage thinning. A small joint effusion is also seen. No acute osseous signal change is noted. The long head of the biceps tendon is rather attenuated, most probably due to at least partial tearing. MRI/Upper Ext Joint Only(Routine) IMPRESSION: 1. 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 2. Moderate right acromioclavicular joint degenerative changes. 3. Advanced degenerative changes of the right glenohumeral joint. Pseudoarticu lation of the inferior acromion with the superior right humeral head, with a very chronic appearance. 4. At least partial tearing of the long head of the biceps tendon is likely pre sent. Reading Location: [id number]
== END | disposition home or self-care (01) ==
PROVIDERS: PCP Nurse Practitioner Family; Referring Provider Orthopaedic Surgery Sports Medicine; Visit Provider Orthopaedic Surgery Sports Medicine
DX: M19.011 Primary osteoarthritis, right shoulder (principal)
CPT/HCPCS: 73221

== ENCOUNTER → 2025-01-17 | Outpatient (CLI) | payer MEDICARE, SELFPAY ==
--- NOTE | 2025-01-17 14:23 | CT_ITS ---
PROCEDURE: EXTREMITY UPPER WITHOUT CONTRA 01/17/2025 REASON FOR EXAM: BLUEPRINT PLANNING FOR RTSA TECHNIQUE: Procedure Code: [id number] Modality: CT Procedure: EXTREMITY UPPER WITHOUT CONTRA Coronal and Sagittal reconstruction series were provided. One or more dose reduction techniques were used (e.g., Automated exposure control, adjustment of the mA and/or kV according to patient size, use of iterative reconstruction technique. RADIATION DOSE SUMMARY: DLP: 672 MGycm COMPARISON: None FINDINGS: Bones: There is an os acromiale, versus subacute acromion fracture. The AC joint is aligned. 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 Rotator cuff: There is severe supraspinatus and infraspinatus muscular atrophy. There is loss of the subacromial space consistent with rotator cuff tear. Soft Tissues: There is a 1 cm solid pulmonary nodule in the right mid lung, image 164/184. Vascular calcifications are visible. CT/Extremity Upper without Contra IMPRESSION: There is an os acromiale, versus subacute acromion fracture. 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 There is severe supraspinatus and infraspinatus muscular atrophy. There is loss of the subacromial space consistent with rotator cuff tear. There is a 1 cm solid pulmonary nodule in the right mid lung, image 164/184. C hest CT correlation is recommended. Reading Location: [facility]
== END | disposition home or self-care (01) ==
LOC: CT 14:21
PROVIDERS: PCP Nurse Practitioner Family; Referring Provider Orthopaedic Surgery Sports Medicine; Visit Provider Orthopaedic Surgery Sports Medicine
DX: M25.511 Pain in right shoulder (principal); M25.512 Pain in left shoulder
CPT/HCPCS: 73200